=== PATIENT | male | born 2000 | race Asian ===

== ENCOUNTER 2023-03-23 16:51 | Emergency (ER) | payer MEDICAID ==
[~2023-03-23] VITALS: Ht 165.1 cm; Wt 78.6 kg
[2023-03-23 17:15] VITALS: BP 123/78; PULSE 78; RESP 18; TEMP 97; O2SAT 99
[2023-03-23] MEDS ORDERED: TETanus/Pertussis (Acell)/Diphther VAC/PF (Tdap-Adult) 0.5ml syringe IMVAC ONE (17:20)
== END 2023-03-23 19:13 | disposition home or self-care (01) ==
LOC: ER 16:52
DX: S61.311A Laceration without foreign body of left index finger with damage to nail, initial encounter (principal); W45.8XXA Other foreign body or object entering through skin, initial encounter; Y93.89 Activity, other specified; Y92.89 Other specified places as the place of occurrence of the external cause; Y99.8 Other external cause status
CPT/HCPCS: 73140; 90471; 90715; 99283; A6258